=== PATIENT | female | born 1945 | race Caucasian/White ===

== ENCOUNTER → 2017-04-18 | Outpatient (CLI) | payer MEDICARE, OTHER ==
[~2017-04-18] MED LIST: ACTOS 15MG TAB15 MG PO; ALLEGRA 180MG180 MG PO; ASPIRIN 32325 MG/TAB PO; AVAPRO75 MG PO; CEPHALEXIN250 M1 PO; CIPRO 500MG TA500 MG PO; CLOPIDOGREL PO; DIOVAN160 MG PO; DOXYCYCLINE 10100 MG PO; FORTAMET1000 MG PO; FOSAMAX 10M10 MG/TAB PO; GLUCOPHAGE1000 MG PO; GLUCOPHAGE500 MG/TAB PO; JANUVIA 100MG100 MG PO; LOPRESSOR50 MG PO; METFORMIN HCL500 M1 PO; MVI; NORCO 325 MG-51 TAB PO; PLAVIX 75MG TAB75 MG PO; TYLENOL 500MG500 MG PO; VITAMIN B COMPL1 T16 PO; VITAMIN D; VITAMIN D 400400 IU PO; VYTORIN; VYTORIN 10 MG-21 TAB PO; VYTORIN 10 MG-41 TAB PO; VYTORIN PO; ZOFRAN4 MG PO; ZOLOFT; ZOLOFT50 MG PO
== END ==
LOC: MC.RAD 13:43
DX: Z12.31 Encounter for screening mammogram for malignant neoplasm of breast (principal); Z85.3 Personal history of malignant neoplasm of breast

== ENCOUNTER → 2018-10-29 | Outpatient (CLI) | payer OTHER | LOC: MC.RAD 14:11 | DX: Z12.31 Encounter for screening mammogram for malignant neoplasm of breast (principal) ==

== ENCOUNTER → 2019-12-28 | Outpatient (CLI) | payer MEDICARE | LOC: MC.RAD 14:44 | DX: Z12.31 Encounter for screening mammogram for malignant neoplasm of breast (principal); Z85.3 Personal history of malignant neoplasm of breast; Z90.11 Acquired absence of right breast and nipple ==

== ENCOUNTER 2020-03-17 13:50 | Outpatient (RCR) | payer MEDICARE | END 2020-03-17 14:08 | disposition home or self-care (01) | LOC: MKS.ESL.PT 13:50 | DX: R53.1 Weakness (principal) ==

== ENCOUNTER → 2020-08-30 | Outpatient (CLI) | payer MEDICARE | LOC: COL.CARD 12:36 | DX: G45.9 Transient cerebral ischemic attack, unspecified (principal) ==

== ENCOUNTER 2020-11-05 17:10 | Emergency (ER) | payer MEDICARE ==
[~2020-11-05] VITALS: Ht 162.6 cm; Wt 74.5 kg
[2020-11-05 18:22] LABS: BASO % 0.4 % (0.0-2.0); EOS # 0.1 (0.0-0.7); EOS % 1.6 % (0-4.0); GRAN # 5.8 (1.4-6.5); GRAN % 67.5 % (42.2-75.2); LYMPH # 1.5 (1.2-3.4); LYMPH % 17.9 % (20.0-51.0); MEAN CELL VOLUME 93 fl (80.0-100.0); MEAN CORPUSCULAR HEMOGLOBIN 31 pg (27.0-31.0); MEAN CORPUSCULAR HGB CONC 33 g/dl (33.0-37.0); MONO % 12.2 % (1.7-9.3); PLATELET COUNT 243 K/mm3 (130-400); RED BLOOD COUNT 3.91 M/mm3 (4.10-5.30)
[2020-11-05 18:27] LABS: HEMATOCRIT 36.2 % (37.0-47.0)
[2020-11-05 18:28] LABS: BILIRUBIN,TOTAL 0.7 mg/dL (0.0-1.0); CALCIUM 9.9 mg/dL (8.4-10.2); CREATININE, serum 1.1 (0.52-1.25); POTASSIUM 4.6 mmol/L (3.4-5.0); TOTAL PROTEIN 7.4 gm/dL (6.4-8.2)
[2020-11-05 19:28] VITALS: BP 178/71; PULSE 58; TEMP 98
== END 2020-11-05 19:33 | disposition home or self-care (01) ==
LOC: COL.ER 17:10
PROVIDERS: Personal Emergency Response Attendant
DX: R53.1 Weakness (principal); I48.91 Unspecified atrial fibrillation; E11.9 Type 2 diabetes mellitus without complications; Z86.73 Personal history of transient ischemic attack (TIA), and cerebral infarction without residual deficits; Z79.02 Long term (current) use of antithrombotics/antiplatelets; Z79.82 Long term (current) use of aspirin; Z79.84 Long term (current) use of oral hypoglycemic drugs

== ENCOUNTER 2020-11-21 22:08 | Emergency (ER) | payer MEDICARE ==
[~2020-11-21] VITALS: Ht 162.6 cm; Wt 74.1 kg
[2020-11-22 00:18] LABS: BILIRUBIN,TOTAL 0.4 mg/dL (0.0-1.0); CALCIUM 9.7 mg/dL (8.4-10.2); CREATININE, serum 1.03 (0.52-1.25); MAGNESIUM 1.4 mg/dL (1.6-2.3); POTASSIUM 4.7 mmol/L (3.4-5.0); TOTAL PROTEIN 7.3 gm/dL (6.4-8.2)
[2020-11-22 03:10] VITALS: BP 128/67; PULSE 65; TEMP 97.9
== END 2020-11-22 03:15 | disposition home or self-care (01) ==
LOC: COL.ER 22:08
PROVIDERS: Emergency Medicine
DX: R20.2 Paresthesia of skin (principal); Z86.73 Personal history of transient ischemic attack (TIA), and cerebral infarction without residual deficits; Z79.01 Long term (current) use of anticoagulants; Z79.02 Long term (current) use of antithrombotics/antiplatelets
CPT/HCPCS: J3475

== ENCOUNTER → 2020-12-22 | Outpatient (CLI) | payer MEDICARE | LOC: COL.RAD 10:02 | DX: R29.898 Other symptoms and signs involving the musculoskeletal system (principal); R53.1 Weakness ==

== ENCOUNTER → 2021-02-14 | Outpatient (CLI) | payer MEDICARE | LOC: MC.RAD 13:00 | DX: Z12.31 Encounter for screening mammogram for malignant neoplasm of breast (principal); Z85.3 Personal history of malignant neoplasm of breast; Z90.11 Acquired absence of right breast and nipple ==

== ENCOUNTER 2021-03-01 20:54 | Emergency (ER) | payer MEDICARE ==
[~2021-03-01] VITALS: Ht 162.6 cm; Wt 72.3 kg
[2021-03-01 22:03] VITALS: TEMP 98.4
[2021-03-01 23:07] VITALS: BP 159/81; PULSE 63
== END 2021-03-01 23:07 | disposition home or self-care (01) ==
LOC: COL.ER 20:54
DX: S60.222A Contusion of left hand, initial encounter (principal); R20.2 Paresthesia of skin; R20.0 Anesthesia of skin; I48.91 Unspecified atrial fibrillation; Z79.01 Long term (current) use of anticoagulants; Z79.02 Long term (current) use of antithrombotics/antiplatelets; X58.XXXA Exposure to other specified factors, initial encounter

== ENCOUNTER 2021-10-02 16:51 | Observation (INO) | payer MEDICARE ==
[~2021-10-02] VITALS: Ht 162.6 cm; Wt 81.1 kg
[2021-10-02 17:21] LABS: BASO % 0.3 % (0.0-2.0); EOS # 0.1 K/mm3 (0.0-0.7); EOS % 0.5 % (0.0-4.0); GRAN # 11.3 K/mm3 (1.4-6.5); GRAN % 82.8 % (42.2-75.2); LYMPH # 1.2 K/mm3 (1.2-3.4); LYMPH % 9.1 % (20.0-51.0); MEAN CELL VOLUME 93 fl (80.0-100.0); MEAN CORPUSCULAR HEMOGLOBIN 31 pg (27-31); MEAN CORPUSCULAR HGB CONC 33 g/dl (33.0-37.0); MEAN PLATELET VOLUME 10.5 fl (7.4-10.4); MONO # 0.9 K/mm3 (0.1-0.6); MONO % 6.9 % (1.7-9.3); PLATELET COUNT 290 K/mm3 (130-400); RED BLOOD COUNT 3.91 M/mm3 (4.10-5.30); REDCELL DISTRIBUTION WIDTH-CV 13.2 % (11.5-14.5)
[2021-10-02 17:26] LABS: HEMATOCRIT 36.2 % (37.0-47.0)
[2021-10-02] MEDS ORDERED: ASPIRIN 81M81 MG/TA2 PO (17:36)
[2021-10-02 17:39] LABS: ALANINE AMINOTRANSFERASE 59 U/L (0-55); ALBUMIN 3.9 gm/dL (3.4-4.8); ALKALINE PHOSPHATASE 74 U/L (40-150); ANION GAP 10 mmol/L (7-16); AST,SGOT 40 U/L (5-34); BILIRUBIN,TOTAL 0.7 mg/dL (0.2-1.2); BLOOD UREA NITROGEN 33 mg/dL (10-20); CALCIUM 9.7 mg/dL (8.4-10.2); CARBON DIOXIDE 20 mmol/L (23-31); CHLORIDE 107 mmol/L (98-107); CREATININE, serum 1.57 mg/dL (0.57-1.11); GLUCOSE 195 mg/dL (70-99); LIPASE 33 U/L (8-78); SODIUM 137 mmol/L (136-145); TOTAL PROTEIN 7.2 gm/dL (6.2-8.1)
[2021-10-02] MEDS ORDERED: TAMBOCOR 1100 MG/TAB PO (17:39)
[2021-10-02] MEDS ORDERED: NORVASC 10MG10 MG PO (17:40)
[2021-10-02] MEDS ORDERED: ELIQUIS 5MG PO (17:40)
[2021-10-02] MEDS ORDERED: COREG 6.256.25 MG/TA PO (17:41)
[2021-10-02] MEDS ORDERED: WELLBUTRIN SR150 M1 PO (17:41)
[2021-10-02 17:42] LABS: POTASSIUM 6.1 mmol/L (3.5-4.5)
[2021-10-02] MEDS ORDERED: APRESOLINE50 MG PO (17:44)
[2021-10-02] MEDS ORDERED: HUMALOG PEN100 U/ML SQ (17:45)
[2021-10-02] MEDS ORDERED: AVAPRO300 M1 PO (17:45)
[2021-10-02] MEDS ORDERED: LEVEMIR FLEX100 U/ML SQ ×2 (17:46)
[2021-10-02] MEDS ORDERED: SINGULAIR 110 MG/TAB PO (17:47)
[2021-10-02 17:50] LABS: ACETONE,SERUM NEGATIVE
[2021-10-02 20:15] LABS: COLLECTION METHOD CLEAN CATCH
[2021-10-02 20:20] LABS: PH 5 (5-8); SQUAMOUS EPITHELIAL 0-2 /hpf (0-10); URINE APPEARANCE Clear (CLEAR/HAZY); URINE BACTERIA None Seen /hpf (NONE SEEN); URINE BILIRUBIN Negative (NEGATIVE); URINE BLOOD Negative (NEGATIVE); URINE COLOR Yellow (YELLOW); URINE GLUCOSE 2+ (NEGATIVE); URINE KETONE Negative (NEGATIVE); URINE LEUKOCYTE ESTERASE Negative (NEGATIVE); URINE NITRATE Negative (NEGATIVE); URINE PROTEIN(semi-quant) Negative (NEGATIVE); URINE RBC 0-2 /hpf (0-2); URINE UROBILINOGEN Negative (NEGATIVE)
[2021-10-02 20:56] VITALS: BP 105/53; PULSE 71; TEMP 97.8
--- NOTE | 2021-10-02 22:33 | NUR ---
PATIENT UP FROM ED TO ROOM 310. ALERT AND ORIENTED. AMBULATED TO BED INDEPENDENTLY. COMPLETED UA AND HAD 500 ML OF CLEAR YELLOW URINE OUT. MED RX REVIEWED AND ADMISSION ASSESSMENTS COMPLETED. DENIES PAIN. MEDS ADMINISTERED PER EMAR. PROVIDED WITH SANDWICH BOX AND WATER. CALL TO JAGDISH INIGUEZ TO UPDATE HER ON POTASSIUM LEVELS. ORDER TO HOLD CHECKS TILL MORNING IF CONTINUE TO TREND DOWN AND ARE LESS THAN 5 AT 2200 CHECK. LABS HELD AT THIS TIME, POTASSIUM AT 4.9 AT THIS TIME. PATIENT CURRENTLY IN BED WATCHING TV.
[2021-10-02 23:25] VITALS: BP 141/45; PULSE 61; TEMP 97.9
[2021-10-03 04:11] VITALS: BP 138/45; PULSE 60; TEMP 97.9
[2021-10-03 06:05] LABS: BASO % 0.2 % (0.0-2.0); EOS # 0.1 K/mm3 (0.0-0.7); EOS % 1.1 % (0.0-4.0); GRAN # 5.9 K/mm3 (1.4-6.5); GRAN % 69.2 % (42.2-75.2); LYMPH # 1.7 K/mm3 (1.2-3.4); MEAN CELL VOLUME 92 fl (80.0-100.0); MEAN CORPUSCULAR HGB CONC 33 g/dl (33.0-37.0); MEAN PLATELET VOLUME 11.8 fl (7.4-10.4); MONO # 0.8 K/mm3 (0.1-0.6); MONO % 9.3 % (1.7-9.3); RED BLOOD COUNT 3.24 M/mm3 (4.10-5.30); REDCELL DISTRIBUTION WIDTH-CV 13.2 % (11.5-14.5)
[2021-10-03 06:08] LABS: HEMATOCRIT 29.9 % (37.0-47.0); MEAN CORPUSCULAR HEMOGLOBIN 31 pg (27-31); PLATELET COUNT 162 K/mm3 (130-400)
[2021-10-03 06:14] LABS: CALCIUM 8.5 mg/dL (8.4-10.2); CREATININE, serum 1.09 mg/dL (0.57-1.11); POTASSIUM 4.6 mmol/L (3.5-4.5)
[2021-10-03 07:49] VITALS: BP 139/48; PULSE 63; TEMP 98.4
[2021-10-03] MEDS ORDERED: HUMALOG PEN100 U/ML SQ (10:17)
--- NOTE | 2021-10-03 11:26 | NUR ---
cathead worker met with patient to discuss discharge plan. Patient reports that she lives at home in [place] with her Jerry ([phone]). Patient reports to being fully independent with her ADL's and does not utilize any DME to assist with mobility. Patient has no home oxygen needs but does utilize a CPAP and she gets her supplies through [facility] in [place]. Patient see's for PCP needs and she utilizes [facility] for medications. Patient does not have a DPOA-HC established. She states that she is currently working on getting it done and does not wish to have any assistance with completing one. Patient is planning on returning home later today with no concerns. Discharge plan: Home with spouse
--- NOTE | 2021-10-03 13:06 | NUR ---
First visit from the justice professor. No needs right now.
== END 2021-10-03 11:22 | disposition home or self-care (01) ==
LOC: COL.ER 16:51 → MEDICAL 18:36
PROVIDERS: Emergency Medicine; Student in an Organized Health Care Education/Training Program; ADMIT Family Medicine
DX: E87.5 Hyperkalemia (principal); R00.1 Bradycardia, unspecified; E11.65 Type 2 diabetes mellitus with hyperglycemia; E11.649 Type 2 diabetes mellitus with hypoglycemia without coma; N17.9 Acute kidney failure, unspecified; I48.91 Unspecified atrial fibrillation; I10 Essential (primary) hypertension; E78.5 Hyperlipidemia, unspecified; F32.A Depression, unspecified; Z79.4 Long term (current) use of insulin; Z79.899 Other long term (current) drug therapy; Z79.84 Long term (current) use of oral hypoglycemic drugs
CPT/HCPCS: 99239; G0378; J0610; J1815; J7030

== ENCOUNTER 2021-10-18 14:52 | Emergency (ER) | payer MEDICARE ==
[~2021-10-18] VITALS: Ht 165.1 cm; Wt 76.4 kg
[~2021-10-18 14:52] MED LIST changes: +APRESOLINE50 MG PO; +ASPIRIN 81M81 MG/TA2 PO; +AVAPRO300 M1 PO; +COREG 6.256.25 MG/TA PO; +ELIQUIS 5MG PO; +HUMALOG PEN100 U/ML SQ; +LEVEMIR FLEX100 U/ML SQ; +NORVASC 10MG10 MG PO; +SINGULAIR 110 MG/TAB PO; +TAMBOCOR 1100 MG/TAB PO; +WELLBUTRIN SR150 M1 PO
[2021-10-18 16:26] LABS: BASO % 0.2 % (0.0-2.0); EOS % 0.3 % (0.0-4.0); GRAN # 10.4 K/mm3 (1.4-6.5); GRAN % 83.5 % (42.2-75.2); HEMOGLOBIN 11.7 g/dl (12.5-16.0); LYMPH # 1.3 K/mm3 (1.2-3.4); LYMPH % 10.1 % (20.0-51.0); MEAN CELL VOLUME 90 fl (80.0-100.0); MEAN CORPUSCULAR HEMOGLOBIN 31 pg (27-31); MEAN CORPUSCULAR HGB CONC 34 g/dl (33.0-37.0); MEAN PLATELET VOLUME 10.2 fl (7.4-10.4); MONO # 0.7 K/mm3 (0.1-0.6); MONO % 5.4 % (1.7-9.3); PLATELET COUNT 286 K/mm3 (130-400); RED BLOOD COUNT 3.82 M/mm3 (4.10-5.30); REDCELL DISTRIBUTION WIDTH-CV 12.8 % (11.5-14.5)
[2021-10-18 16:27] LABS: HEMATOCRIT 34.5 % (37.0-47.0)
[2021-10-18 16:37] LABS: COLLECTION METHOD CLEAN CATCH
[2021-10-18 16:43] LABS: ALANINE AMINOTRANSFERASE 140 U/L (0-55); ALBUMIN 3.7 gm/dL (3.4-4.8); ALKALINE PHOSPHATASE 81 U/L (40-150); ANION GAP 10 mmol/L (7-16); AST,SGOT 129 U/L (5-34); BILIRUBIN,TOTAL 0.5 mg/dL (0.2-1.2); BLOOD UREA NITROGEN 34 mg/dL (10-20); CALCIUM 9.4 mg/dL (8.4-10.2); CARBON DIOXIDE 22 mmol/L (23-31); CHLORIDE 104 mmol/L (98-107); CREATININE, serum 1.19 mg/dL (0.57-1.11); GLUCOSE 197 mg/dL (70-99); MAGNESIUM 1.8 mg/dL (1.6-2.6); SODIUM 136 mmol/L (136-145); TOTAL PROTEIN 7.3 gm/dL (6.2-8.1)
[2021-10-18 16:46] LABS: MUCOUS Present (NOT PRESENT); PH 5 (5-8); SQUAMOUS EPITHELIAL 0-2 /hpf (0-10); URINE APPEARANCE Clear (CLEAR/HAZY); URINE BACTERIA None Seen /hpf (NONE SEEN); URINE BILIRUBIN Negative (NEGATIVE); URINE BLOOD Negative (NEGATIVE); URINE COLOR Yellow (YELLOW); URINE GLUCOSE Negative (NEGATIVE); URINE KETONE Negative (NEGATIVE); URINE LEUKOCYTE ESTERASE Negative (NEGATIVE); URINE NITRATE Negative (NEGATIVE); URINE PROTEIN(semi-quant) Negative (NEGATIVE); URINE RBC None Seen /hpf (0-2); URINE UROBILINOGEN Negative (NEGATIVE)
[2021-10-18 17:03] LABS: TSH w REFLEX 1.203 uIU/mL (0.350-4.940)
[2021-10-18 17:04] LABS: TROPONIN-I < 0.010 ng/mL (0.00-0.033)
[2021-10-18 18:00] VITALS: BP 141/56; PULSE 61; TEMP 97.2
== END 2021-10-18 18:00 | disposition home or self-care (01) ==
LOC: COL.ER 14:52
PROVIDERS: Emergency Medicine
DX: E11.65 Type 2 diabetes mellitus with hyperglycemia (principal)
CPT/HCPCS: J7040

== ENCOUNTER → 2021-12-19 | Outpatient (CLI) | payer MEDICARE | LOC: COL.RAD 06:37 | DX: R68.81 Early satiety (principal); R63.0 Anorexia | CPT/HCPCS: A9541 ==

== ENCOUNTER 2022-09-23 00:59 | Emergency (ER) | payer MEDICARE ==
[~2022-09-23] VITALS: Ht 162.6 cm; Wt 78.6 kg
[2022-09-23 01:04] VITALS: TEMP 97.9
[2022-09-23 01:18] LABS: HEMATOCRIT 37.2 % (37.0-47.0); HEMOGLOBIN 12.8 g/dl (12.5-16.0); MEAN CELL VOLUME 87 fl (80.0-100.0); MEAN CORPUSCULAR HEMOGLOBIN 30 pg (27-31); MEAN CORPUSCULAR HGB CONC 34 g/dl (33.0-37.0); MEAN PLATELET VOLUME 10.3 fl (7.4-10.4); PLATELET COUNT 254 K/mm3 (130-400); RED BLOOD COUNT 4.26 M/mm3 (4.10-5.30); REDCELL DISTRIBUTION WIDTH-CV 13.2 % (11.5-14.5)
[2022-09-23 01:31] LABS: ACETONE,SERUM NEGATIVE
[2022-09-23 01:36] LABS: ALANINE AMINOTRANSFERASE 38 U/L (0-55); ALKALINE PHOSPHATASE 81 U/L (40-150); ANION GAP 11 mmol/L (7-16); AST,SGOT 29 U/L (5-34); BILIRUBIN,TOTAL 0.4 mg/dL (0.2-1.2); BLOOD UREA NITROGEN 23 mg/dL (10-20); C-REACTIVE PROTEIN 0.04 mg/dL (0.00-0.50); CARBON DIOXIDE 24 mmol/L (23-31); CHLORIDE 103 mmol/L (98-107); CREATININE, serum 1.32 mg/dL (0.57-1.11); GLUCOSE 295 mg/dL (70-99); POTASSIUM 4.1 mmol/L (3.5-4.5); SODIUM 138 mmol/L (136-145); TOTAL PROTEIN 7.8 gm/dL (6.2-8.1)
[2022-09-23 01:39] LABS: LYMPHOCYTE 14 % (20.0-51.0); NEUTROPHILS 79 % (42.0-75.2); PLATELET ESTIMATE NORMAL (NORMAL)
[2022-09-23 01:42] LABS: TROPONIN-I < 0.010 ng/mL (0.00-0.033)
[2022-09-23 03:07] VITALS: BP 135/88; PULSE 86
== END 2022-09-23 03:07 | disposition home or self-care (01) ==
LOC: COL.ER 00:59
PROVIDERS: Emergency Medicine
DX: I10 Essential (primary) hypertension (principal); E11.65 Type 2 diabetes mellitus with hyperglycemia; R79.89 Other specified abnormal findings of blood chemistry
CPT/HCPCS: J1815; J7030

== ENCOUNTER 2023-03-15 16:36 | Emergency (ER) | payer MEDICARE ==
[~2023-03-15] VITALS: Ht 160 cm; Wt 73.2 kg
[2023-03-15 16:42] VITALS: BP 150/93; TEMP 97.8
[2023-03-15] MEDS ORDERED: ILOTYCIN5 MG/GM OP (17:29)
[2023-03-15 17:52] VITALS: PULSE 50
== END 2023-03-15 17:52 | disposition home or self-care (01) ==
LOC: COL.ER 16:36
DX: H00.024 Hordeolum internum left upper eyelid (principal); Z88.2 Allergy status to sulfonamides

== ENCOUNTER → 2023-06-20 | Outpatient (CLI) | payer MEDICARE ==
[~2023-06-20] MED LIST changes: +ILOTYCIN5 MG/GM OP
== END ==
LOC: MC.RAD 14:30
DX: Z12.31 Encounter for screening mammogram for malignant neoplasm of breast (principal)

== ENCOUNTER 2024-02-06 17:48 | Emergency (ER) | payer MEDICARE ==
[~2024-02-06] VITALS: Ht 165.1 cm; Wt 66.8 kg
[2024-02-06 17:50] VITALS: TEMP 98.6
[2024-02-06 19:41] VITALS: BP 135/49; PULSE 71
== END 2024-02-06 19:55 | disposition home or self-care (01) ==
LOC: COL.ER 17:48
DX: S01.81XA Laceration without foreign body of other part of head, initial encounter (principal); Z79.02 Long term (current) use of antithrombotics/antiplatelets; Z79.82 Long term (current) use of aspirin; Z23 Encounter for immunization; W18.30XA Fall on same level, unspecified, initial encounter; W22.09XA Striking against other stationary object, initial encounter; Y92.510 Bank as the place of occurrence of the external cause

== ENCOUNTER 2024-02-11 16:39 | Emergency (ER) | payer MEDICARE ==
[~2024-02-11] VITALS: Ht 165.1 cm; Wt 65.0 kg
[2024-02-11 16:46] VITALS: TEMP 97.6
[2024-02-11 17:33] LABS: BASO % 0.2 % (0.0-2.0); EOS # 0.1 K/mm3 (0.0-0.7); EOS % 1.2 % (0.0-4.0); GRAN # 5.9 K/mm3 (1.4-6.5); GRAN % 72.9 % (42.2-75.2); HEMOGLOBIN 11.6 g/dl (12.5-16.0); LYMPH # 1.2 K/mm3 (1.2-3.4); LYMPH % 14.5 % (20.0-51.0); MEAN CELL VOLUME 91 fl (80.0-100.0); MEAN CORPUSCULAR HEMOGLOBIN 31 pg (27-31); MEAN CORPUSCULAR HGB CONC 34 g/dl (33.0-37.0); MONO # 0.9 K/mm3 (0.1-0.6); MONO % 10.8 % (1.7-9.3); PLATELET COUNT 250 K/mm3 (130-400); RED BLOOD COUNT 3.72 M/mm3 (4.10-5.30); REDCELL DISTRIBUTION WIDTH-CV 12.5 % (11.5-14.5)
[2024-02-11 17:39] LABS: HEMATOCRIT 33.9 % (37.0-47.0)
[2024-02-11 17:42] LABS: INR 1.6 (0.8-3.0); PROTHROMBIN TIME 17.1 SECONDS (9.7-12.8)
[2024-02-11 17:45] LABS: PARTIAL THROMBOPLASTIN TIME 35.6 SECONDS (26.0-37.0)
[2024-02-11 17:49] LABS: ALBUMIN 3.5 g/dL (3.4-4.8); BILIRUBIN,TOTAL 0.7 mg/dL (0.2-1.2); CALCIUM 9.4 mg/dL (8.4-10.2); CREATININE, serum 1.3 mg/dL (0.57-1.11); POTASSIUM 4.4 mEq/L (3.5-4.5); TOTAL PROTEIN 6.3 g/dl (6.2-8.1)
[2024-02-11 19:27] VITALS: BP 160/59; PULSE 68
== END 2024-02-11 19:27 | disposition home or self-care (01) ==
LOC: COL.ER 16:39
PROVIDERS: Emergency Medicine
DX: S00.83XA Contusion of other part of head, initial encounter (principal); S80.02XA Contusion of left knee, initial encounter; W18.30XA Fall on same level, unspecified, initial encounter

== ENCOUNTER 2024-05-03 13:08 | Emergency (ER) | payer MEDICARE ==
[~2024-05-03] VITALS: Ht 162.6 cm; Wt 65.5 kg
[~2024-05-03 13:08] MED LIST changes: +AMOXICILLIN/CLA1 TA1 PO; +ARICEPT 5MG PO; +CENTRUM SILVER1 TAB; +LASIX 20MG TABL20 MG PO; +MINOXIDIL 10 PO; +NAMENDA5 MG PO; +ZOLOFT 100MG100 MG PO; +ZYRTEC 10MG10 MG PO
[2024-05-03 13:17] VITALS: TEMP 97.7
[2024-05-03] MEDS ORDERED: NS 1,000 ML IV ONE ×2 (13:45→16:15)
[2024-05-03] MEDS ORDERED: Ondansetron 4 MG/2 ML VIAL IV ONE (13:45)
[2024-05-03 13:48] LABS: MEAN CELL VOLUME 90 fl (80.0-100.0); MEAN CORPUSCULAR HEMOGLOBIN 30 pg (27-31); MEAN CORPUSCULAR HGB CONC 34 g/dl (33.0-37.0); MEAN PLATELET VOLUME 10.8 fl (7.4-10.4); PLATELET COUNT 256 K/mm3 (130-400); RED BLOOD COUNT 3.95 M/mm3 (4.10-5.30); REDCELL DISTRIBUTION WIDTH-CV 12.6 % (11.5-14.5)
[2024-05-03 13:52] LABS: HEMATOCRIT 35.4 % (37.0-47.0)
[2024-05-03 14:10] LABS: BILIRUBIN,TOTAL 1.4 mg/dL (0.2-1.2); CALCIUM 10.2 mg/dL (8.4-10.2); CREATININE, serum 1.12 mg/dL (0.57-1.11); POTASSIUM 3.8 mEq/L (3.5-4.5); TOTAL PROTEIN 7.9 g/dl (6.2-8.1)
[2024-05-03] MEDS ORDERED: NS 100 ML IV SCH (14:38)
[2024-05-03] MEDS ORDERED: Iohexol 300 - 100 ML VIAL IV ONE (14:38)
[2024-05-03 14:42] LABS: LYMPHOCYTE 2 % (20.0-51.0); NEUTROPHILS 96 % (42.0-75.2); PLATELET ESTIMATE NORMAL (NORMAL)
[2024-05-03 15:28] LABS: COLLECTION METHOD CLEAN CATCH
[2024-05-03 15:39] LABS: URINE APPEARANCE CLEAR (CLEAR/HAZY); URINE BLOOD TRACE (NEGATIVE); URINE COLOR YELLOW (YELLOW); URINE GLUCOSE 3+ (NEGATIVE); URINE KETONE 1+ (NEGATIVE); URINE NITRATE POSITIVE (NEGATIVE); URINE PROTEIN(semi-quant) 2+ (NEGATIVE); URINE UROBILINOGEN 0.2 E.U/dL (0.2-1.0)
[2024-05-03] MEDS ORDERED: cefTRIAXone 1 G in Water For Injection,Sterile 10 ML IV ONE (16:30)
[2024-05-03] MEDS ORDERED: AMOXICILLIN 8751 TAB PO (17:30)
[2024-05-03 17:35] VITALS: BP 163/60; PULSE 86
== END 2024-05-03 17:37 | disposition home or self-care (01) ==
LOC: COL.ER 13:08
PROVIDERS: Nurse Practitioner Primary Care
DX: K57.92 Diverticulitis of intestine, part unspecified, without perforation or abscess without bleeding (principal); N39.0 Urinary tract infection, site not specified; Z88.2 Allergy status to sulfonamides; Z95.5 Presence of coronary angioplasty implant and graft
CPT/HCPCS: J0696; J2405; J7030; Q9967